=== PATIENT | female | born 1940 | race Caucasian/White ===

== ENCOUNTER 2018-03-17 15:39 | Emergency (ER) | payer OTHER ==
[2018-03-17 16:12] LABS: ADD MAN DIFF? NO
[2018-03-17 16:16] LABS: ABNORMAL IP MESSAGE 1; BASOPHIL # 0.1 10^3/ul (0.0-0.1); BASOPHILS % 0.4 % (0.0-2.0); EOSINOPHILS # 0.3 10^3/ul (0.0-0.5); EOSINOPHILS % 1.6 % (0.0-7.0); HEMATOCRIT 38.5 % (37.0-47.0); LYMPHOCYTES # 6.1 10^3/ul (0.8-2.9); LYMPHOCYTES % 35.6 % (15.0-51.0); MEAN CORPUSCULAR HEMOGLOBIN 28.5 pg (29.0-33.0); MEAN CORPUSCULAR HGB CONC 33.8 g/dl (32.0-37.0); MEAN CORPUSCULAR VOLUME 84.4 fl (82.0-101.0); MEAN PLATELET VOLUME 8.3 fl (7.4-10.4); MONOCYTE # 0.9 10^3/ul (0.3-0.9); NEUTROPHIL # 9.7 10^3/ul (1.6-7.5); NEUTROPHILS % 56.5 % (39.0-77.0); PLATELET COUNT 347 10^3/UL (140-415); RED BLOOD COUNT 4.56 10^6/ul (4.20-5.40); RED CELL DISTRIBUTION WIDTH 12.4 % (11.5-14.5)
[2018-03-17 16:16] LABS: WHITE BLOOD COUNT 17.1 10^3/ul (4.8-10.8)
[2018-03-17 16:19] LABS: POSITIVE DIFF @See below
[2018-03-17 16:32] LABS: INR 1.01; PROTIME 13.4 Sec (11.9-14.9)
[2018-03-17 16:35] LABS: ALANINE AMINOTRANSFERASE 21 IU/L (13-69); ALBUMIN 4.4 g/dl (3.3-4.9); ALBUMIN/GLOBULIN RATIO 1.29; ALKALINE PHOSPHATASE 80 IU/L (42-121); ANION GAP 10 (5-13); ASPARTATE AMINO TRANSFERASE 22 IU/L (15-46); BILIRUBIN,INDIRECT 0.4 mg/dl (0-1.1); BILIRUBIN,TOTAL 0.4 mg/dl (0.2-1.3); BLOOD UREA NITROGEN 24 mg/dl (7-20); CALCIUM 9.4 mg/dl (8.4-10.2); CARBON DIOXIDE 24 mmol/L (21-31); CHLORIDE 103 mmol/L (97-110); CHOLESTEROL 203 mg/dl (100-200); CREATINE KINASE 46 IU/L (23-200); GLUCOSE 135 mg/dl (70-220); HDL CHOLESTEROL 29 mg/dl (33-92); LDL CHOLESTEROL,CALCULATED 117 mg/dl; POTASSIUM 3.4 mmol/L (3.5-5.1); SODIUM 137 mmol/L (135-144); TOTAL PROTEIN 7.8 g/dl (6.1-8.1); TRIGLYCERIDES 286 mg/dl (0-149)
[2018-03-17 16:46] LABS: CK INDEX 1.1; TROPONIN-I < 0.012 ng/ml (0.000-0.120)
[2018-03-17 16:50] LABS: ETHANOL < 10.0 mg/dl
[2018-03-17] MEDS: morphine 2 MG INJ IV (16:52)
[2018-03-17] MEDS: POTASSIUM CHLORIDE (SR) 20 MEQ TAB PO ×2 (21:54→22:31)
[2018-03-17] MEDS: SOD CHLORIDE 0.9% 500 ML IV (21:55)
[2018-03-17] MEDS: DIPHTH/TET/ACEL PERTUSS (ADULT) 0.5 ML VIAL IM* ×2 (21:58→22:04)
== END 2018-03-17 23:31 | disposition short-term general hospital (02) ==
LOC: E/R 15:39
DX: R55 Syncope and collapse (principal); S14.129A Central cord syndrome at unspecified level of cervical spinal cord, initial encounter; S09.90XA Unspecified injury of head, initial encounter; I10 Essential (primary) hypertension; X58.XXXA Exposure to other specified factors, initial encounter; Y92.9 Unspecified place or not applicable
CPT/HCPCS: 36415; 70450; 71045; 72125; 72141; 73030-RT; 80053; 80061; 80307; 82550; 82553; 82962; 84484; 85025; 85610; 85730; 90715; 93005; 96374; 99291-25